=== PATIENT | male | born 1975 | race American Indian/Alaskan Native ===

== ENCOUNTER 2024-01-25 13:41 | Outpatient (AMB) | payer OTHER, MEDICAID, SELFPAY ==
--- NOTE | 2024-01-25 13:46 | MHC.OFFVIS ---
Vital Signs 01/25/24 13:47 Height 5 ft 7 in Weight 160 lb BMI 25.1 BP 159/70 H Blood Pressure Location Lt brachial Position Sitting Pulse 105 H Pulse Source Pulse Oximeter Pulse Oximetry (%) 98 Oxygen Delivery Method Room Air Intake Visit Reasons: Chronic Low Back Pain Allergies tocilizumab [From ACTEMRA] Allergy (Severe, Unverified 01/25/24 13:51) anaphylaxis tofacitinib [From XELJANZ] Allergy (Severe, Unverified 01/25/24 13:51) ANAPHYLAXIS amoxicillin [AMOXICILLIN] Allergy (Intermediate, Unverified 01/25/24 13:51) RASH codeine [CODEINE] Allergy (Intermediate, Unverified 01/25/24 13:51) RASH fentanyl [FENTANYL] Allergy (Intermediate, Unverified 01/25/24 13:51) TACHYCARDIA Penicillins [PENICILLINS] Allergy (Intermediate, Unverified 01/25/24 13:51) HIVES penicillin G Allergy (Unknown, Verified 01/25/24 13:51) Unknown sarilumab [Kevzara] Allergy (Unknown, Verified 01/25/24 13:51) Unknown Medication List - Last Reconciled 01/25/24 by Aliya Rahman apixaban (Eliquis) 5 mg PO BID ferrous sulfate 325 mg PO DAILY folic acid 1 mg PO DAILY methotrexate 2.5 mg PO QWEEK methylprednisolone 4 mg PO DAILY omeprazole 40 mg PO DAILY HPI Comments Details: Johnathon is a very pleasant 48-year-old male who presents the office today, accompanied by his mother, for evaluation management of his chronic all-over pain. Patient is suffering from seropositive rheumatoid arthritis, he complains of pain all over including neck, back, hands, fingers, legs, ankles and feet. He has significant deformities of both hands secondary to his rheumatoid arthritis Pain today is rated as a 10/10, constant all day He reports pain has progressively getting worse over the last few years. He was diagnosed with rheumatoid her shave 16 years ago. Up to 6 years ago he was active, working 2 jobs and independent. 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 He has tried gabapentin but it made him depressed. PCP tried fentanyl patch in the past but he would like it made him feel. He has been given oxycodone 5 mg after surgeries and hospitalizations. This is the only medication Ella found provides him some relief and ability to function. PCP has ordered an MRI, he is awaiting appointment for this Scheduled for surgery of the foot to have toes straightened on February 19. After this he will be having hand surgery but that date is pending. In terms of muscle damage condition is described as sharp, shooting, stabbing, aching, burning, jumping, pounding, pinching, cramping, crushing, dull, sore, aching, heavy, stinging,numb, tingling Pain is negatively impacting patient's enjoyment of life, general activity, mood, normal functioning, ability care for himself, ability to perform activities of daily living. Endorses current use of Eliquis Denies implantable devices, pacemaker defibrillator Denies current use of nicotine, tobacco, alcohol or illicit substances [facility] Medical History (Updated 01/25/24 @ 17:04 by Marycruz Dolan APRN, PRODUCTION TECHNICIAN) Kidney stones GERD (gastroesophageal reflux disease) Review of Systems Const All systems reviewed & are unremarkable except as noted in HPI and below Physical Exam Vital Signs: Last Vital Signs Pulse 105 H 01/25/24 13:47 BP 159/70 H 01/25/24 13:47 Pulse Ox 98 01/25/24 13:47 Oxygen Delivery Method Room Air 01/25/24 13:47 BMI result Body Mass Index 25.1 General: awake, alert, oriented. Answers questions appropriately. Fully engaged in examination. Skin: warm, dry, intact HEENT: Normocephalic. Hearing intact. Cardiac: External chest normal in appearance. Respiratory: No cough, audible wheezing or stridor. Abdomen: without gross distension. MS: Significant deformities of hands secondary to rheumatoid arthritis. Patient is seated in wheelchair, able to stand with assistance. Tenderness to palpation midline lumbar vertebrae and lumbar paraspinal muscles SLR negative bilaterally Nontender over bilateral PSIS Neurological: Oriented to person, place, time and situation. Thought process intact. Psychiatric: Appropriate mood and affect. Good judgment and insight. Assessment & Plan Assessment & Plan (1) Chronic pain syndrome: Code(s): G89.4 - Chronic pain syndrome Category: Medical (2) Rheumatoid arthritis: Code(s): M06.9 - Rheumatoid arthritis, unspecified Category: Medical Plan Johnathon is a very pleasant 48-year-old male who presents to the office today for evaluation management of his chronic pain secondary to arthritis We will try Lyrica 25 mg p.o. q.8 hours, patient advised on cautions for use. If patient does not find any relief with Lyrica, may benefit from chronic opioid therapy as this has provided him some pain relief and improvement in his quality of life in the past. He will schedule follow up with Dr. Sylvester to further discuss. Patient is scheduled for foot surgery in 3 weeks, he will follow up in our office 4 weeks after surgery. Medications: New pregabalin (Lyrica) 25 mg PO Q8H 90 caps 1RF Coding Level of Care Code New Pt Level 4 (09087) Complex EM visit Add On G2211 Diagnoses Chronic pain syndrome G89.4 Rheumatoid arthritis M06.9
[2024-01-25 13:47] VITALS: BP 159/70; PULSE 105; O2SAT 98; BMI 25.1
== END 2024-01-25 14:45 | disposition home or self-care (01) ==
PROVIDERS: PCP Nurse Practitioner Family; Visit Provider Registered Nurse Emergency
DX: G89.4 Chronic pain syndrome (principal); M06.9 Rheumatoid arthritis, unspecified
CPT/HCPCS: 99204; G2211

== ENCOUNTER → 2024-01-25 13:41 | Outpatient (BNVA) | payer OTHER, SELFPAY | PROVIDERS: PCP Nurse Practitioner Family; Visit Provider Registered Nurse Emergency | DX: M06.9 Rheumatoid arthritis, unspecified (principal); G89.4 Chronic pain syndrome | CPT/HCPCS: 99202 ==

== ENCOUNTER 2024-03-12 10:19 | Outpatient (AMB) | payer OTHER, MEDICAID, SELFPAY ==
--- NOTE | 2024-03-12 10:20 | MHC.OFFVIS ---
Vital Signs 03/12/24 10:30 Height 5 ft 7 in Weight 160 lb BMI 25.1 BP 124/70 Blood Pressure Location Lt brachial Position Sitting Respiration 12 Pulse 113 H Pulse Source Pulse Oximeter Pulse Oximetry (%) 98 Oxygen Delivery Method Room Air Intake Visit Reasons: Follow Up Intake Note: Patient comes in for follow up. He is accompanied by mother Chikis. Reports he took Oxycodone on 03/11/24 at 9pm. Today pain is 10/10, Accompanied by: Mother Allergies tocilizumab [From ACTEMRA] Allergy (Severe, Verified 03/12/24 10:30) anaphylaxis tofacitinib [From XELJANZ] Allergy (Severe, Verified 03/12/24 10:30) ANAPHYLAXIS amoxicillin [AMOXICILLIN] Allergy (Intermediate, Verified 03/12/24 10:30) RASH codeine [CODEINE] Allergy (Intermediate, Verified 03/12/24 10:30) RASH fentanyl [FENTANYL] Allergy (Intermediate, Verified 03/12/24 10:30) TACHYCARDIA Penicillins [PENICILLINS] Allergy (Intermediate, Verified 03/12/24 10:30) HIVES penicillin G Allergy (Unknown, Verified 03/12/24 10:30) Unknown sarilumab [Kevzara] Allergy (Unknown, Verified 03/12/24 10:30) Unknown HPI Comments Details: Johnathon is back in my office cause possibility of further evaluation and treatment. Unfortunately here in constraints of chronic pain management I can offer him only chronic opioid therapy. I explained to him that chronic opioids eventually will result in increased pain. I also explained to him some side effects and complications of chronic opioid therapy. I gave him informed consent, opioid information pain, and opioid agreement. I also send him for the urine drug screen. He is currently on oxycodone after surgery on his left foot. He stated that he took his oxycodone yesterday. So he must have some oxycodone metabolites in his urine. When his urine drug screen will come back we will seat together I will perform the opioid risk assessment, and then we will discuss chronic opioid therapy treatment, obligations, risks and benefits. Prior: Patient is suffering from seropositive rheumatoid arthritis, he complains of pain all over including neck, back, hands, fingers, legs, ankles and feet. He has significant deformities of both hands secondary to his rheumatoid arthritis Pain today is rated as a 10/10, constant all day He reports pain has progressively getting worse over the last few years. He was diagnosed with rheumatoid her tyreseve 16 years ago. Up to 6 years ago he was active, working 2 jobs and independent. 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 He has tried gabapentin but it made him depressed. PCP tried fentanyl patch in the past but he would like it made him feel. He has been given oxycodone 5 mg after surgeries and hospitalizations. This is the only medication Ella found provides him some relief and ability to function. PCP has ordered an MRI, he is awaiting appointment for this Scheduled for surgery of the foot to have toes straightened on February 19. After this he will be having hand surgery but that date is pending. Currently on Eliquis. [facility] Medical History (Updated 01/25/24 @ 17:04 by Marycruz Dolan, DOPE WEIGH OPERATOR, TISSUE PACKER) Kidney stones GERD (gastroesophageal reflux disease) Review of Systems Const All systems reviewed & are unremarkable except as noted in HPI and below Physical Exam Vital Signs: Last Vital Signs Pulse 113 H 03/12/24 10:30 Resp 12 03/12/24 10:30 BP 124/70 03/12/24 10:30 Pulse Ox 98 03/12/24 10:30 Oxygen Delivery Method Room Air 03/12/24 10:30 BMI result Body Mass Index 25.1 General: awake, alert, oriented. Answers questions appropriately. Fully engaged in examination. Skin: warm, dry, intact HEENT: Normocephalic. Hearing intact. Cardiac: External chest normal in appearance. Respiratory: No cough, audible wheezing or stridor. Abdomen: without gross distension. MS: Significant deformities of hands secondary to rheumatoid arthritis. Patient is seated in wheelchair, able to stand with assistance. Tenderness to palpation midline lumbar vertebrae and lumbar paraspinal muscles SLR negative bilaterally Nontender over bilateral PSIS Neurological: Oriented to person, place, time and situation. Thought process intact. Psychiatric: Appropriate mood and affect. Good judgment and insight. Assessment & Plan Assessment & Plan (1) Chronic pain syndrome: Code(s): G89.4 - Chronic pain syndrome Category: Medical (2) Rheumatoid arthritis: Code(s): M06.9 - Rheumatoid arthritis, unspecified Category: Medical Plan Johnathon is a very pleasant 48-year-old male who presents to the office today for evaluation management of his chronic pain secondary to RA. 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 Denies help from Lyrica reports that Lyrica aggravates his pain. 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 Consent, agreement, information page were given to the patient today. UDS will be done today. Next appointment need to be scheduled for 1 hour. Patient Instructions: I here by testify that I spent 32 minutes in conversation with this patient as well as planning his care and organizing this note. Coding Level of Care Code Est Pt Level 4 (12957) Diagnoses Chronic pain syndrome G89.4 Rheumatoid arthritis M06.9
[2024-03-12 10:30] VITALS: BP 124/70; PULSE 113; RESP 12; O2SAT 98; BMI 25.1
== END 2024-03-12 11:06 | disposition home or self-care (01) ==
PROVIDERS: PCP Nurse Practitioner Family; Visit Provider Anesthesiology
DX: G89.4 Chronic pain syndrome (principal); M06.9 Rheumatoid arthritis, unspecified
CPT/HCPCS: 99214

== ENCOUNTER → 2024-03-12 10:19 | Outpatient (BNVA) | payer OTHER, MEDICAID, SELFPAY | PROVIDERS: PCP Nurse Practitioner Family; Visit Provider Anesthesiology | DX: G89.4 Chronic pain syndrome (principal); M06.9 Rheumatoid arthritis, unspecified; Z51.81 Encounter for therapeutic drug level monitoring; Z79.891 Long term (current) use of opiate analgesic | CPT/HCPCS: 99212 ==